=== PATIENT | female | born 1975 | race African-American/Black ===

== ENCOUNTER 2020-10-11 10:35 | Emergency (ER) | payer OTHER ==
[2020-10-11 10:49] VITALS: BP 105/81; PULSE 91; TEMP 97.8; BMI 38.2
[2020-10-11] MEDS ORDERED: IBUPROFEN 400 MG TABLET (FP) PO ONE ×2 (12:01→12:03)
== END 2020-10-11 12:34 | disposition home or self-care (01) ==
LOC: JERFT 10:35
DX: S97.81XA Crushing injury of right foot, initial encounter (principal); S90.31XA Contusion of right foot, initial encounter
CPT/HCPCS: 73630-TC-LT; 99283-25

== ENCOUNTER 2021-01-04 07:59 | Emergency (ER) | payer BC, OTHER ==
[2021-01-04 08:16] VITALS: TEMP 98.6; BMI 36.2
[2021-01-04] MEDS ORDERED: ACETAMINOPHEN 1000 MG/100 ML VIAL (NON FORMULARY) IVPB ONE (09:02)
[2021-01-04] MEDS ORDERED: LACTATED RINGERS SOLUTION 1000 ML INFUS.BAG IV ONE (09:02)
[2021-01-04] MEDS ORDERED: FAMOTIDINE 20 MG/50 ML IVPB 20 MG/50 ML MG IVPB ONE ×2 (09:02→09:30)
[2021-01-04] MEDS ORDERED: ALBUTEROL SO4 HFA INHALER IH ONE ×2 (09:10→09:30)
[2021-01-04] MEDS ORDERED: ACETAMINOPHEN INJECTION 100 ML IVPB ONE (09:29)
[2021-01-04 09:38] LABS: BASO % 0.3 % (0-2.0); EOS % 1.5 % (0-4.5); HEMATOCRIT 40.1 % (32.4-45.2); HEMOGLOBIN 12.8 GM/dL (10.7-15.3); LYMPH % 20.3 % (8-40); MCH 25.1 pg (25.7-33.7); MCHC 31.9 g/dl (32.0-36.0); MEAN CELL VOLUME 78.6 fl (80-96); MEAN PLT VOLUME 8.3 fl (7.5-11.1); MONO % 4.8 % (3.8-10.2); NEUT % 73.1 % (42.8-82.8); PLATELET COUNT 427 K/MM3 (134-434); RDW 15.7 % (11.6-15.6); WHITE BLOOD COUNT 8.2 K/mm3 (4.0-10.0)
[2021-01-04 10:00] LABS: CHLORIDE 104 mmol/L (98-107); SODIUM 137 mmol/L (136-145)
[2021-01-04 10:05] LABS: ALBUMIN 3.4 g/dl (3.4-5.0); ANION GAP 6 MMOL/L (8-16); BLOOD UREA NITROGEN 13.4 mg/dL (7-18); CO2 27 mmol/L (21-32); GLUCOSE,RANDOM 91 mg/dL (74-106); LIPASE 140 U/L (73-393)
[2021-01-04 10:07] LABS: CREATININE 0.8 mg/dL (0.55-1.3); SGOT/AST 20 U/L (15-37); SGPT/ALT 27 U/L (13-61)
[2021-01-04 10:09] LABS: BILIRUBIN,TOTAL 0.3 mg/dL (0.2-1); CALCIUM 8.6 mg/dL (8.5-10.1)
[2021-01-04 10:10] LABS: ALK PHOS 216 U/L (45-117)
[2021-01-04 12:50] VITALS: BP 163/90; PULSE 74
== END 2021-01-04 13:00 | disposition home or self-care (01) ==
LOC: JER 07:59
PROC: 3E0333Z Introduction of Anti-inflammatory into Peripheral Vein, Percutaneous Approach (ICD-10-PCS; principal; 2021-01-04)
PROC: 3E033GC Introduction of Other Therapeutic Substance into Peripheral Vein, Percutaneous Approach (ICD-10-PCS; 2021-01-04)
DX: R10.13 Epigastric pain (principal)
CPT/HCPCS: 36415; 71046-TC-FY; 76705-TC; 80053; 82550; 83690; 84484; 84703; 85025; 93005; 93010; 99285-25; J0131

== ENCOUNTER 2021-08-25 08:27 | Emergency (ER) | payer BC ==
[2021-08-25 08:45] VITALS: TEMP 97.8; BMI 38.2
[2021-08-25] MEDS ORDERED: ALBUTEROL SO4 2.5/IPRATROPIUM 0.5 INH SOL 3 ML VIAL.NEB. NEB ONE ×2 (10:00→10:05)
[2021-08-25] MEDS ORDERED: DEXAMETHASONE LIQUID 0.5 MG/5 ML PO ONE (10:01)
[2021-08-25] MEDS ORDERED: DEXAMETHASONE SOD PHOSPHATE 10 MG/1 ML VIAL ONE (10:05)
[2021-08-25 12:03] VITALS: BP 112/80; PULSE 92
== END 2021-08-25 12:07 | disposition home or self-care (01) ==
LOC: JER 08:27
PROC: 3E0F7GC Introduction of Other Therapeutic Substance into Respiratory Tract, Via Natural or Artificial Opening (ICD-10-PCS; principal; 2021-08-25)
DX: U07.1 COVID-19 (principal); R05.1 Acute cough
CPT/HCPCS: 71046-TC-FY; 99283-25

== ENCOUNTER 2022-04-27 14:13 | Emergency (ER) | payer BC ==
[2022-04-27 14:35] VITALS: BP 167/84; PULSE 91; RESP 18; TEMP 98.8; BMI 38.2
[2022-04-27] MEDS ORDERED: KETOROLAC TROMETHAMINE 30 MG/1 ML VIAL ONE (15:24)
[2022-04-27] MEDS ORDERED: SODIUM CHLORIDE 0.9% 500 ML INFUS.BAG IV ONE (17:33)
[2022-04-27] MEDS ORDERED: ACETAMINOPHEN 1000 MG/100 ML BAG IVPB ONE (17:33)
[2022-04-27] MEDS ORDERED: ACETAMINOPHEN INJECTION 100 ML IVPB ONE (19:10)
[2022-04-27 19:30] LABS: BASO % 0.6 % (0-2.0); EOS % 2.2 % (0-4.5); HEMATOCRIT 35.4 % (32.4-45.2); HEMOGLOBIN 11.4 GM/dL (10.7-15.3); LYMPH % 30.6 % (8-40); MCH 24.8 pg (25.7-33.7); MCHC 32.2 g/dl (32.0-36.0); MEAN PLT VOLUME 8.3 fl (7.5-11.1); MONO % 5.1 % (3.8-10.2); NEUT % 61.5 % (42.8-82.8); PLATELET COUNT 336 10^3/uL (134-434); RDW 17.4 % (11.6-15.6); WHITE BLOOD COUNT 6.9 K/mm3 (4.0-10.0)
[2022-04-27 19:48] LABS: HCG,QUALITATIVE URINE Negative
[2022-04-27 19:56] LABS: EPI CELLS 8 /uL (0-25.1); HYALINE CASTS 3 /uL (0-3.1); PH,URINE 5.5 (5.0-8.0); URINE APPEARANCE CLEAR; URINE BACTERIA 19 /uL (0-1359); URINE BILIRUBIN NEGATIVE (NEGATIVE); URINE COLOR YELLOW; URINE GLUCOSE (UA) 3+ (NEGATIVE); URINE KETONE TRACE (NEGATIVE); URINE LEUK ESTERASE NEGATIVE (NEGATIVE); URINE NITRITE NEGATIVE (NEGATIVE); URINE PROTEIN 2+ (NEGATIVE); URINE RBC 519 /uL (0-23.9); URINE UROBILINOGEN 0.2 mg/dL (0.2-1.0); URINE WBC 19 /uL (0-25.8)
[2022-04-27 19:58] LABS: CALCIUM 8.8 mg/dL (8.5-10.1)
[2022-04-27 19:59] LABS: ALBUMIN 3.1 g/dl (3.4-5.0); BLOOD UREA NITROGEN 14.2 mg/dL (7-18)
[2022-04-27 20:02] LABS: CREATININE 0.9 mg/dL (0.55-1.3)
[2022-04-27 20:03] LABS: BILIRUBIN,TOTAL 0.3 mg/dL (0.2-1)
[2022-04-27 20:04] LABS: TOT PROT 7.3 g/dl (6.4-8.2)
== END 2022-04-27 21:17 | disposition home or self-care (01) ==
LOC: JER 14:13
PROC: 3E033GC Introduction of Other Therapeutic Substance into Peripheral Vein, Percutaneous Approach (ICD-10-PCS; principal; 2022-04-27)
DX: N92.1 Excessive and frequent menstruation with irregular cycle (principal)
CPT/HCPCS: 36415; 76830-TC; 80053; 81003; 84703; 85025; 87086; 99284-25

== ENCOUNTER 2022-05-17 10:16 | Emergency (ER) | payer BC ==
[2022-05-17 11:01] VITALS: RESP 20; TEMP 98; BMI 38.2
[2022-05-17] MEDS ORDERED: SODIUM CHLORIDE 1,000 ML IV STA (12:06)
[2022-05-17] MEDS ORDERED: ONDANSETRON 4 MG/2 ML VIAL IVPUSH ONE (12:06)
[2022-05-17] MEDS ORDERED: ACETAMINOPHEN 1000 MG/100 ML BAG IVPB ONE (12:06)
[2022-05-17] MEDS ORDERED: ONDANSETRON 4 MG/2 ML VIAL ONE (12:20)
[2022-05-17] MEDS ORDERED: ACETAMINOPHEN INJECTION 100 ML IVPB ONE (12:20)
[2022-05-17 12:39] LABS: VENOUS BASE EXCESS 3.9 mmol/L (-2-2); VENOUS PCO2 52.3 mmHg (38-52); VENOUS PH 7.379 (7.310-7.410)
[2022-05-17 12:40] LABS: BASO % 1.6 % (0-2.0); EOS % 1.4 % (0-4.5); HEMATOCRIT 38.6 % (32.4-45.2); HEMOGLOBIN 12.1 GM/dL (10.7-15.3); LYMPH % 29.4 % (8-40); MCH 23.8 pg (25.7-33.7); MCHC 31.3 g/dl (32.0-36.0); MEAN CELL VOLUME 76.1 fl (80-96); MEAN PLT VOLUME 8.9 fl (7.5-11.1); MONO % 5.1 % (3.8-10.2); NEUT % 62.5 % (42.8-82.8); PLATELET COUNT 347 10^3/uL (134-434); RBC 5.07 M/mm3 (3.60-5.2); RDW 16.8 % (11.6-15.6)
[2022-05-17 12:45] LABS: INR 1.14 (0.83-1.09); PROTHROMBIN TIME (PATIENT) 13.1 SEC (9.7-13.0)
[2022-05-17 12:47] LABS: ACTIVATED PTT 26.9 SECONDS (25.2-36.5)
[2022-05-17 13:00] LABS: ALBUMIN 2.9 g/dl (3.4-5.0); BLOOD UREA NITROGEN 19.8 mg/dL (7-18); CALCIUM 9.5 mg/dL (8.5-10.1)
[2022-05-17 13:04] LABS: BILIRUBIN,TOTAL 0.5 mg/dL (0.2-1); TOT PROT 7.3 g/dl (6.4-8.2)
[2022-05-17] MEDS ORDERED: FAMOTIDINE 20 MG/50 ML IVPB 20 MG/50 ML MG IVPB ONE (13:22)
[2022-05-17] MEDS ORDERED: MAG HYDROX/AL HYDROX/SIMETH 30 ML UNIT-DOSE CUP PO ONE (13:22)
[2022-05-17] MEDS ORDERED: MAG HYDROX/AL HYDROX/SIMETH 30 ML UNIT-DOSE CUP ONE (13:26)
[2022-05-17 14:44] LABS: URINE APPEARANCE CLEAR; URINE BILIRUBIN NEGATIVE (NEGATIVE); URINE COLOR YELLOW; URINE GLUCOSE (UA) 3+ (NEGATIVE); URINE KETONE NEGATIVE (NEGATIVE); URINE LEUK ESTERASE NEGATIVE (NEGATIVE); URINE NITRITE NEGATIVE (NEGATIVE); URINE PROTEIN 1+ (NEGATIVE); URINE UROBILINOGEN 0.2 mg/dL (0.2-1.0)
[2022-05-17 15:36] LABS: EPI CELLS 15 /uL (0-25.1); HYALINE CASTS 1 /uL (0-3.1); URINE BACTERIA 222 /uL (0-1359); URINE RBC 12 /uL (0-23.9); URINE WBC 63 /uL (0-25.8)
[2022-05-17 16:51] VITALS: BP 166/78; PULSE 70
== END 2022-05-17 17:03 | disposition home or self-care (01) ==
LOC: JER 10:16
PROC: 3E0333Z Introduction of Anti-inflammatory into Peripheral Vein, Percutaneous Approach (ICD-10-PCS; principal; 2022-05-17)
PROC: 3E033GC Introduction of Other Therapeutic Substance into Peripheral Vein, Percutaneous Approach (ICD-10-PCS; 2022-05-17)
PROC: 3E0337Z Introduction of Electrolytic and Water Balance Substance into Peripheral Vein, Percutaneous Approach (ICD-10-PCS; 2022-05-17)
DX: R10.9 Unspecified abdominal pain (principal)
CPT/HCPCS: 36415; 76705-TC; 80053; 80061; 81003; 82010; 82803; 83036; 83690; 84703; 85025; 85610; 85730; 87086; 99284-25

== ENCOUNTER 2022-05-18 08:34 | Inpatient (IN) | payer BC ==
[2022-05-18] MEDS ORDERED: ACETAMINOPHEN 1000 MG/100 ML BAG IVPB ONE (08:55)
[2022-05-18] MEDS ORDERED: ONDANSETRON 4 MG/2 ML VIAL IVPUSH ONE (08:55)
[2022-05-18] MEDS ORDERED: SODIUM CHLORIDE 0.9% 500 ML INFUS.BAG IV ONE (08:55)
[2022-05-18] MEDS ORDERED: morphine CARPU-JECT 4 MG/1 ML DISP.SYRIN IVPUSH ONE (09:08)
[2022-05-18] MEDS ORDERED: CEFTRIAXONE 2,000 MG in DEXTROSE 5%-WATER - 50 ML IVPB ONE (09:13)
[2022-05-18] MEDS ORDERED: ONDANSETRON 4 MG/2 ML VIAL ONE (09:46)
[2022-05-18] MEDS ORDERED: morphine SULFATE 4 MG/ML VIAL ONE (09:47)
[2022-05-18] MEDS ORDERED: CEFTRIAXONE 2 GM/100 ML BAG IVPB ONE (09:51)
[2022-05-18 10:15] LABS: BASO % 1.6 % (0-2.0); EOS % 1.8 % (0-4.5); HEMATOCRIT 36.9 % (32.4-45.2); HEMOGLOBIN 11.9 GM/dL (10.7-15.3); LYMPH % 27.4 % (8-40); MCH 24.5 pg (25.7-33.7); MCHC 32.3 g/dl (32.0-36.0); MEAN CELL VOLUME 75.9 fl (80-96); MEAN PLT VOLUME 8.8 fl (7.5-11.1); MONO % 5.6 % (3.8-10.2); NEUT % 63.6 % (42.8-82.8); PLATELET COUNT 320 10^3/uL (134-434); RBC 4.86 M/mm3 (3.60-5.2); RDW 16.6 % (11.6-15.6); WHITE BLOOD COUNT 8.6 K/mm3 (4.0-10.0)
[2022-05-18 10:23] LABS: BLOOD UREA NITROGEN 14.8 mg/dL (7-18); CALCIUM 9.5 mg/dL (8.5-10.1)
[2022-05-18 10:24] LABS: ALBUMIN 3.3 g/dl (3.4-5.0); MAGNESIUM 2.2 mg/dL (1.8-2.4)
[2022-05-18 10:26] LABS: CREATININE 0.9 mg/dL (0.55-1.3)
[2022-05-18 10:28] LABS: BILIRUBIN,TOTAL 0.5 mg/dL (0.2-1); TOT PROT 7.8 g/dl (6.4-8.2)
[2022-05-18 10:35] LABS: ACTIVATED PTT 21.1 SECONDS (25.2-36.5); INR 1.11 (0.83-1.09); PROTHROMBIN TIME (PATIENT) 12.8 SEC (9.7-13.0)
[2022-05-18] MEDS ORDERED: ONDANSETRON 4 MG/2 ML VIAL IVPUSH PRN (14:15)
[2022-05-18] MEDS ORDERED: ACETAMINOPHEN 1000 MG/100 ML BAG IVPB PRN (14:16)
[2022-05-18] MEDS ORDERED: ALBUTEROL SO4 HFA INHALER IH PRN (14:46)
[2022-05-18 14:57] VITALS: BMI 36.7
[2022-05-18] MEDS: NICOTINE 14 MG/24 HOURS TOPICAL PATCH TD SCH (15:48)
[2022-05-18] MEDS: SODIUM CHLORIDE 1,000 ML IV SCH (15:49)
[2022-05-18] MEDS: INSULIN SLIDING SCALE (NOVOLOG) 1 VIAL SQ SCH ×2 (16:01→22:04)
[2022-05-18] MEDS ORDERED: INSULIN (NOVOLOG) ASPART 100 UNITS/ML 10ML VIAL ONE (16:31)
[2022-05-19] MEDS: SODIUM CHLORIDE 1,000 ML IV SCH ×3 (03:07→23:51)
[2022-05-19] MEDS: INSULIN SLIDING SCALE (NOVOLOG) 1 VIAL SQ SCH ×4 (06:08→21:56)
[2022-05-19] MEDS ORDERED: BUPIVACAINE HCL/PF 0.25% (2.5MG/ML) 10 ML VIAL ONE (07:52)
[2022-05-19 08:17] LABS: HEMATOCRIT 33.2 % (32.4-45.2); HEMOGLOBIN 10.6 GM/dL (10.7-15.3); MCH 24.2 pg (25.7-33.7); MCHC 31.9 g/dl (32.0-36.0); MEAN PLT VOLUME 8.4 fl (7.5-11.1); PLATELET COUNT 274 10^3/uL (134-434); RBC 4.37 M/mm3 (3.60-5.2); RDW 16.8 % (11.6-15.6); WHITE BLOOD COUNT 5.8 K/mm3 (4.0-10.0)
[2022-05-19] MEDS ORDERED: SEVOFLURANE 250 ML BTL ONE (08:18)
[2022-05-19] MEDS ORDERED: MIDAZOLAM HCL 2 MG/2 ML SINGLE DOSE VIAL ONE (08:23)
[2022-05-19] MEDS ORDERED: PROPOFOL 20 ML ONE ×3 (08:23→11:26)
[2022-05-19] MEDS ORDERED: ROCURONIUM BROMIDE 50 MG/5 ML SYRINGE ONE ×2 (08:23→10:07)
[2022-05-19] MEDS ORDERED: LIDOCAINE HCL 2% 100 MG/5 ML DISP.SYRIN ONE (08:27)
[2022-05-19 08:44] LABS: BLOOD UREA NITROGEN 10.1 mg/dL (7-18); CALCIUM 8.5 mg/dL (8.5-10.1)
[2022-05-19 08:48] LABS: PHOSPHOROUS 3.4 mg/dL (2.5-4.9)
[2022-05-19 08:49] LABS: CREATININE 0.7 mg/dL (0.55-1.3)
[2022-05-19] MEDS ORDERED: PROMETHAZINE HCL 25 MG/1 ML VIAL IVPUSH PRN (08:51)
[2022-05-19] MEDS ORDERED: oxyCODONE HCL 5 MG TABLET PO PRN ×4 (08:51→12:04)
[2022-05-19] MEDS ORDERED: LACTATED RINGERS SOLUTION 1,000 ML IV SCH (09:00)
[2022-05-19] MEDS ORDERED: ceFAZolin SODIUM 1 GM VIAL IVPB ONE (09:20)
[2022-05-19] MEDS ORDERED: ONDANSETRON 4 MG/2 ML VIAL ONE (09:30)
[2022-05-19] MEDS ORDERED: DEXAMETHASONE SOD PHOSPHATE 4 MG/1 ML VIAL ONE (09:30)
[2022-05-19] MEDS ORDERED: ALBUTEROL SO4 HFA INHALER IH ONE (09:39)
[2022-05-19] MEDS ORDERED: LISINOPRIL 5 MG TABLET PO SCH (10:00)
[2022-05-19] MEDS ORDERED: CEFTRIAXONE 1 GM in DEXTROSE 5%-WATER - 50 ML IVPB SCH (10:00)
[2022-05-19] MEDS ORDERED: LABETALOL HCL 5 MG/1 ML (100MG/20 ML VIAL) ONE (10:26)
[2022-05-19] MEDS ORDERED: NEOSTIGMINE METHYLSULFATE 0.5 MG/ML - 10 ML MDV ONE (11:02)
[2022-05-19] MEDS ORDERED: GLYCOPYRROLATE 0.2 MG/1 ML VIAL ONE (11:02)
[2022-05-19] MEDS ORDERED: KETOROLAC TROMETHAMINE 30 MG/1 ML VIAL ONE (11:03)
[2022-05-19] MEDS ORDERED: BUPIVACAINE HCL/PF 0.25% (2.5MG/ML) 10 ML VIAL IJ ONE (11:04)
[2022-05-19] MEDS ORDERED: hydrALAZINE HCL 20 MG/ML VIAL IVPUSH ONE (11:57)
[2022-05-19] MEDS ORDERED: ALBUTEROL SO4 HFA INHALER IH PRN (12:04)
[2022-05-19] MEDS ORDERED: ACETAMINOPHEN 1000 MG/100 ML BAG IVPB ONE (13:00)
[2022-05-19] MEDS: ONDANSETRON 4 MG/2 ML VIAL IVPUSH PRN ×2 (13:58→21:57)
[2022-05-19] MEDS: NICOTINE 14 MG/24 HOURS TOPICAL PATCH TD SCH (14:11)
[2022-05-19] MEDS ORDERED: morphine CARPU-JECT 2 MG/1 ML DISP.SYRIN IVPUSH PRN (17:38)
[2022-05-19] MEDS: morphine SULFATE 4 MG/ML VIAL IVPUSH PRN ×2 (17:46→22:46)
[2022-05-19] MEDS: ACETAMINOPHEN 500 MG TABLET (FP) PO SCH (20:58)
[2022-05-19] MEDS ORDERED: INSULIN (NOVOLOG) ASPART 100 UNITS/ML 10ML VIAL ONE (21:56)
[2022-05-20] MEDS: ACETAMINOPHEN 500 MG TABLET (FP) PO SCH ×3 (03:05→14:31)
[2022-05-20] MEDS: INSULIN SLIDING SCALE (NOVOLOG) 1 VIAL SQ SCH ×4 (06:31→22:33)
[2022-05-20] MEDS: SODIUM CHLORIDE 1,000 ML IV SCH (08:53)
[2022-05-20 09:28] LABS: HEMATOCRIT 31.4 % (32.4-45.2); HEMOGLOBIN 9.8 GM/dL (10.7-15.3); MCH 23.7 pg (25.7-33.7); MCHC 31.2 g/dl (32.0-36.0); MEAN CELL VOLUME 76.2 fl (80-96); PLATELET COUNT 293 10^3/uL (134-434); RBC 4.12 M/mm3 (3.60-5.2); RDW 16.3 % (11.6-15.6); WHITE BLOOD COUNT 9.9 K/mm3 (4.0-10.0)
[2022-05-20 09:51] LABS: CALCIUM 8.5 mg/dL (8.5-10.1)
[2022-05-20 09:52] LABS: BLOOD UREA NITROGEN 8.6 mg/dL (7-18); MAGNESIUM 1.9 mg/dL (1.8-2.4)
[2022-05-20 09:53] LABS: PHOSPHOROUS 2.8 mg/dL (2.5-4.9)
[2022-05-20 09:55] LABS: CREATININE 0.6 mg/dL (0.55-1.3)
[2022-05-20 09:56] LABS: BILIRUBIN,TOTAL 0.4 mg/dL (0.2-1); TOT PROT 6.2 g/dl (6.4-8.2)
[2022-05-20 09:57] LABS: ALBUMIN 2.6 g/dl (3.4-5.0)
[2022-05-20] MEDS: LISINOPRIL 5 MG TABLET PO SCH (10:33)
[2022-05-20] MEDS: morphine SULFATE 4 MG/ML VIAL IVPUSH PRN (10:33)
[2022-05-20] MEDS: NICOTINE 14 MG/24 HOURS TOPICAL PATCH TD SCH (10:33)
[2022-05-20] MEDS: ACETAMINOPHEN 500 MG TABLET (FP) PO PRN (22:27)
[2022-05-21] MEDS: morphine SULFATE 4 MG/ML VIAL IVPUSH PRN (00:09)
[2022-05-21] MEDS: SODIUM CHLORIDE 1,000 ML IV SCH (05:45)
[2022-05-21] MEDS: INSULIN SLIDING SCALE (NOVOLOG) 1 VIAL SQ SCH ×3 (06:19→16:49)
[2022-05-21] MEDS: NICOTINE 14 MG/24 HOURS TOPICAL PATCH TD SCH (09:51)
[2022-05-21] MEDS: ACETAMINOPHEN 500 MG TABLET (FP) PO PRN (09:51)
[2022-05-21] MEDS: LISINOPRIL 5 MG TABLET PO SCH (09:51)
[2022-05-21 10:05] VITALS: RESP 18
[2022-05-21 15:53] VITALS: BP 145/8; PULSE 90; TEMP 98.6
== END 2022-05-21 14:30 | disposition home or self-care (01) | DRG 419 ==
LOC: JER 08:34 → JERBED 08:55 → J7W 14:29
PROVIDERS: ADMIT Internal Medicine; ATTEND Internal Medicine
PROC: 0FT44ZZ Resection of Gallbladder, Percutaneous Endoscopic Approach (ICD-10-PCS; principal; 2022-05-19 07:30)
DX: K80.10 Calculus of gallbladder with chronic cholecystitis without obstruction (principal); I10 Essential (primary) hypertension; E11.9 Type 2 diabetes mellitus without complications; F17.210 Nicotine dependence, cigarettes, uncomplicated; E66.9 Obesity, unspecified; Z68.36 Body mass index [BMI] 36.0-36.9, adult; E11.65 Type 2 diabetes mellitus with hyperglycemia; Z79.4 Long term (current) use of insulin; R10.11 Right upper quadrant pain
CPT/HCPCS: 36415; 71046-TC-FY; 76705-TC; 80048; 80053; 80061; 82962; 83690; 83735; 84100; 84484; 84703; 85025; 85027; 85610; 85730; 86850; 86900; 86901; 88304-TC; 93005; 93010; 94760; 99285-25; C9803-CS; U0003; U0005

== ENCOUNTER 2022-06-30 12:30 | Observation (INO) | payer BC ==
[2022-06-30] MEDS ORDERED: SODIUM CHLORIDE 0.9% 500 ML INFUS.BAG IV ONE ×2 (13:31→18:41)
[2022-06-30] MEDS ORDERED: ONDANSETRON 4 MG/2 ML VIAL IVPUSH ONE (13:31)
[2022-06-30] MEDS ORDERED: morphine CARPU-JECT 4 MG/1 ML DISP.SYRIN IVPUSH ONE (13:31)
[2022-06-30] MEDS ORDERED: ONDANSETRON 4 MG/2 ML VIAL ONE (13:43)
[2022-06-30] MEDS ORDERED: morphine SULFATE 4 MG/ML VIAL ONE (13:43)
[2022-06-30 15:14] LABS: BASO % 0.3 % (0-2.0); EOS % 0.9 % (0-4.5); HEMATOCRIT 39.8 % (32.4-45.2); HEMOGLOBIN 12.6 GM/dL (10.7-15.3); LYMPH % 40.7 % (8-40); MCH 23.5 pg (25.7-33.7); MCHC 31.7 g/dl (32.0-36.0); MEAN CELL VOLUME 74.1 fl (80-96); MEAN PLT VOLUME 8.1 fl (7.5-11.1); MONO % 5.3 % (3.8-10.2); NEUT % 52.8 % (42.8-82.8); PLATELET COUNT 552 10^3/uL (134-434); RBC 5.36 M/mm3 (3.60-5.2); RDW 16.8 % (11.6-15.6); WHITE BLOOD COUNT 7.4 K/mm3 (4.0-10.0)
[2022-06-30 15:19] LABS: EPI CELLS >36 /uL (0-25.1); HYALINE CASTS 8 /uL (0-3.1); URINE APPEARANCE TURBID; URINE BACTERIA 19 /uL (0-1359); URINE BILIRUBIN 2+ (NEGATIVE); URINE COLOR DK YELLOW; URINE GLUCOSE (UA) TRACE (NEGATIVE); URINE KETONE TRACE (NEGATIVE); URINE LEUK ESTERASE TRACE (NEGATIVE); URINE NITRITE NEGATIVE (NEGATIVE); URINE PROTEIN 2+ (NEGATIVE); URINE RBC 2100 /uL (0-23.9); URINE UROBILINOGEN 0.2 mg/dL (0.2-1.0); URINE WBC 81 /uL (0-25.8)
[2022-06-30 15:36] LABS: ALBUMIN 3.5 g/dl (3.4-5.0); CALCIUM 9.6 mg/dL (8.5-10.1)
[2022-06-30 15:37] LABS: BLOOD UREA NITROGEN 32.6 mg/dL (7-18)
[2022-06-30 15:40] LABS: CREATININE 2.1 mg/dL (0.55-1.3)
[2022-06-30 15:41] LABS: BILIRUBIN,TOTAL 0.5 mg/dL (0.2-1); TOT PROT 8.4 g/dl (6.4-8.2)
[2022-06-30] MEDS ORDERED: FAMOTIDINE 20 MG/50 ML IVPB 20 MG/50 ML MG IVPB ONE ×2 (19:01→19:06)
[2022-06-30] MEDS ORDERED: MAG HYDROX/AL HYDROX/SIMETH -MYLANTA- ORAL SUSPENSION PO ONE (19:01)
[2022-06-30] MEDS ORDERED: SUCRALFATE 1 GM TABLET (FP) PO ONE (19:01)
[2022-06-30] MEDS ORDERED: SUCRALFATE 1 GM TABLET (FP) ONE (19:06)
[2022-06-30] MEDS ORDERED: MAG HYDROX/AL HYDROX/SIMETH 30 ML UNIT-DOSE CUP ONE (19:06)
[2022-06-30] MEDS ORDERED: TRIMETHOBENZAMIDE HCL 200MG/2ML INJ IM PRN (21:56)
[2022-06-30] MEDS ORDERED: HEPARIN NA (PORCINE) 5,000 UNITS/ML 1ML VIAL ONE (23:32)
[2022-06-30] MEDS: INSULIN SLIDING SCALE (NOVOLOG) 1 VIAL SQ SCH (23:56)
[2022-06-30] MEDS: HEPARIN NA (PORCINE) 5,000 UNITS/ML 1ML VIAL SQ SCH (23:57)
[2022-07-01] MEDS ORDERED: PIPERACILLIN/TAZOB 3.375 GM 3.375 GM in DEXTROSE 5%-WATER - 50 ML IVPB SCH ×2 (02:00→02:15)
[2022-07-01 05:42] VITALS: BMI 37.9
[2022-07-01] MEDS: HEPARIN NA (PORCINE) 5,000 UNITS/ML 1ML VIAL SQ SCH ×2 (06:39→14:01)
[2022-07-01] MEDS: INSULIN SLIDING SCALE (NOVOLOG) 1 VIAL SQ SCH ×3 (06:40→17:21)
[2022-07-01] MEDS ORDERED: VANCOMYCIN HCL 1,500 MG in DEXTROSE 5%-WATER - 250 ML IVPB SCH (07:00)
[2022-07-01 08:08] LABS: EOS % 2.3 % (0-4.5); HEMATOCRIT 32.7 % (32.4-45.2); HEMOGLOBIN 10.5 GM/dL (10.7-15.3); LYMPH % 39.2 % (8-40); MCHC 32.3 g/dl (32.0-36.0); MEAN CELL VOLUME 74.4 fl (80-96); MEAN PLT VOLUME 8.3 fl (7.5-11.1); MONO % 6.4 % (3.8-10.2); NEUT % 51.1 % (42.8-82.8); PLATELET COUNT 362 10^3/uL (134-434); RBC 4.39 M/mm3 (3.60-5.2); RDW 16.2 % (11.6-15.6); WHITE BLOOD COUNT 5.6 K/mm3 (4.0-10.0)
[2022-07-01 08:25] LABS: BLOOD UREA NITROGEN 25.2 mg/dL (7-18)
[2022-07-01 08:26] LABS: MAGNESIUM 2.5 mg/dL (1.8-2.4)
[2022-07-01 08:28] LABS: PHOSPHOROUS 3.8 mg/dL (2.5-4.9)
[2022-07-01 08:30] LABS: BILIRUBIN,TOTAL 0.4 mg/dL (0.2-1); TOT PROT 6.5 g/dl (6.4-8.2)
[2022-07-01 08:35] LABS: ALBUMIN 2.6 g/dl (3.4-5.0); CALCIUM 7.9 mg/dL (8.5-10.1)
[2022-07-01] MEDS ORDERED: SODIUM CHLORIDE 0.45% 1,000 ML IV SCH (09:00)
[2022-07-01] MEDS ORDERED: LISINOPRIL 5 MG TABLET PO SCH (10:00)
[2022-07-01] MEDS ORDERED: SODIUM ZIRCONIUM CYCLOSILICATE (LOKELMA) 5 GM PACKET PO SCH (12:45)
[2022-07-01] MEDS ORDERED: NICOTINE 21 MG/24 HOURS TOPICAL PATCH TD SCH (14:15)
[2022-07-01 16:01] LABS: CALCIUM 8.4 mg/dL (8.5-10.1)
[2022-07-01 16:03] LABS: BLOOD UREA NITROGEN 21.5 mg/dL (7-18)
[2022-07-01 16:05] LABS: CREATININE 0.9 mg/dL (0.55-1.3)
[2022-07-01 17:54] VITALS: BP 141/60; PULSE 80; RESP 20; TEMP 98.9
== END 2022-07-01 18:51 | disposition home or self-care (01) ==
LOC: JER 12:30 → JERBED 17:59 → INTOOBSV 17:59 → J4S 23:51
PROVIDERS: ADMIT Internal Medicine; ATTEND Internal Medicine
PROC: 3E033GC Introduction of Other Therapeutic Substance into Peripheral Vein, Percutaneous Approach (ICD-10-PCS; principal; 2022-06-30)
PROC: 3E033NZ Introduction of Analgesics, Hypnotics, Sedatives into Peripheral Vein, Percutaneous Approach (ICD-10-PCS; 2022-06-30)
PROC: 3E033GC Introduction of Other Therapeutic Substance into Peripheral Vein, Percutaneous Approach (ICD-10-PCS; 2022-06-30)
PROC: 3E0337Z Introduction of Electrolytic and Water Balance Substance into Peripheral Vein, Percutaneous Approach (ICD-10-PCS; 2022-06-30)
DX: N17.9 Acute kidney failure, unspecified (principal); R77.8 Other specified abnormalities of plasma proteins; E78.00 Pure hypercholesterolemia, unspecified; J45.909 Unspecified asthma, uncomplicated; E66.8 Other obesity; I10 Essential (primary) hypertension; E87.5 Hyperkalemia; N92.0 Excessive and frequent menstruation with regular cycle; F12.10 Cannabis abuse, uncomplicated; Z29.8 Encounter for other specified prophylactic measures; R19.8 Other specified symptoms and signs involving the digestive system and abdomen; Z68.37 Body mass index [BMI] 37.0-37.9, adult; E11.9 Type 2 diabetes mellitus without complications; Z79.4 Long term (current) use of insulin; F17.210 Nicotine dependence, cigarettes, uncomplicated; Z79.84 Long term (current) use of oral hypoglycemic drugs
CPT/HCPCS: 36415; 71046-TC-FY; 76705-TC; 76775-TC; 80048; 80053; 80061; 81003; 82550; 82553; 82570; 82962; 83036; 83690; 83735; 84100; 84156; 84443; 84484; 84703; 85025; 87086; 93005; 93010; 99285-25; C9803-CS; G0378; J1644; U0003; U0005

== ENCOUNTER 2022-09-25 08:05 | Emergency (ER) | payer BC ==
[2022-09-25 08:35] VITALS: BP 178/89; PULSE 82; RESP 18; TEMP 98.7; BMI 38.2
[2022-09-25] MEDS ORDERED: ACETAMINOPHEN 500 MG TABLET (FP) PO ONE (10:20)
[2022-09-25] MEDS ORDERED: ACETAMINOPHEN 325 MG TABLET (FP) ONE (10:44)
== END 2022-09-25 11:44 | disposition home or self-care (01) ==
LOC: JERFT 08:05 → JER 08:05 → JERFT 11:44
DX: M79.671 Pain in right foot (principal)
CPT/HCPCS: 73610-TC-RT-FY; 73630-TC-RT-FY; 99283-25

== ENCOUNTER 2023-05-09 20:55 | Observation (INO) | payer BC ==
[2023-05-09 21:04] VITALS: BMI 38.2
[2023-05-09] MEDS ORDERED: LISINOPRIL 5 MG TABLET PO ONE (22:35)
[2023-05-09 22:45] LABS: BASO % 1.6 % (0-2.0); EOS % 0.8 % (0-4.5); HEMATOCRIT 33.9 % (32.4-45.2); HEMOGLOBIN 11.1 GM/dL (10.7-15.3); LYMPH % 29.3 % (8-40); MCH 24.9 pg (25.7-33.7); MCHC 32.7 g/dl (32.0-36.0); MEAN CELL VOLUME 76.1 fl (80-96); MEAN PLT VOLUME 8.6 fl (7.5-11.1); MONO % 4.9 % (3.8-10.2); NEUT % 63.4 % (42.8-82.8); PLATELET COUNT 294 10^3/uL (134-434); RBC 4.46 M/mm3 (3.60-5.2); RDW 18.6 % (11.6-15.6); WHITE BLOOD COUNT 7.8 K/mm3 (4.0-10.0)
[2023-05-09 22:46] LABS: VENOUS BASE EXCESS 3.4 mmol/L (-2-2); VENOUS PCO2 48.1 mmHg (38-52); VENOUS PH 7.398 (7.310-7.410)
[2023-05-09] MEDS ORDERED: LISINOPRIL 5 MG TABLET ONE (22:48)
[2023-05-09 22:53] LABS: INR 1.12 (0.83-1.09)
[2023-05-09 22:56] LABS: ACTIVATED PTT 26.3 SECONDS (25.2-36.5)
[2023-05-09 22:57] LABS: POTASSIUM 4.2 mmol/L (3.5-5.1)
[2023-05-09 22:59] LABS: ALBUMIN 3.1 g/dl (3.4-5.0); CALCIUM 8.6 mg/dL (8.5-10.1)
[2023-05-09 23:00] LABS: BLOOD UREA NITROGEN 14.3 mg/dL (7-18)
[2023-05-09 23:04] LABS: BILIRUBIN,TOTAL 0.5 mg/dL (0.2-1); TOT PROT 7.2 g/dl (6.4-8.2)
[2023-05-09 23:06] LABS: EPI CELLS 9 /uL (0-25.1); HYALINE CASTS 1 /uL (0-3.1); PH,URINE 5.5 (5.0-8.0); URINE APPEARANCE CLEAR; URINE BACTERIA 18 /uL (0-1359); URINE BILIRUBIN NEGATIVE (NEGATIVE); URINE COLOR YELLOW; URINE GLUCOSE (UA) 3+ (NEGATIVE); URINE KETONE NEGATIVE (NEGATIVE); URINE LEUK ESTERASE NEGATIVE (NEGATIVE); URINE NITRITE NEGATIVE (NEGATIVE); URINE PROTEIN 3+ (NEGATIVE); URINE RBC 1353 /uL (0-23.9); URINE UROBILINOGEN 0.2 mg/dL (0.2-1.0); URINE WBC 12 /uL (0-25.8)
[2023-05-09 23:08] LABS: N-TERMINAL BNP 460.3 pg/ml (5-125)
[2023-05-09] MEDS ORDERED: ACETAMINOPHEN 1000 MG/100 ML BAG IVPB ONE (23:40)
[2023-05-09] MEDS ORDERED: ACETAMINOPHEN INJECTION 100 ML IVPB ONE (23:45)
[2023-05-10] MEDS ORDERED: INSULIN REGULAR HUMAN 100 UNITS/ML *VIAL SQ ONE (01:07)
[2023-05-10] MEDS ORDERED: hydrALAZINE HCL 20 MG/ML VIAL IVPUSH STA (04:57)
[2023-05-10] MEDS ORDERED: hydrALAZINE HCL 20 MG/ML VIAL ONE (05:06)
[2023-05-10] MEDS: HYDROCHLOROTHIAZIDE 12.5 MG CAPSULE (FP) PO SCH ×2 (05:37→10:50)
[2023-05-10] MEDS ORDERED: ACETAMINOPHEN 325 MG TABLET (FP) PO PRN ×2 (05:41→17:52)
[2023-05-10] MEDS ORDERED: ACETAMINOPHEN 325 MG TABLET (FP) PO ONE (06:02)
[2023-05-10] MEDS ORDERED: ACETAMINOPHEN 325 MG TABLET (FP) ONE ×3 (06:07→16:27)
[2023-05-10 07:24] LABS: HEMATOCRIT 33.2 % (32.4-45.2); HEMOGLOBIN 10.6 GM/dL (10.7-15.3); MCH 24.7 pg (25.7-33.7); MCHC 31.8 g/dl (32.0-36.0); MEAN CELL VOLUME 77.6 fl (80-96); MEAN PLT VOLUME 8.7 fl (7.5-11.1); PLATELET COUNT 278 10^3/uL (134-434); RBC 4.28 M/mm3 (3.60-5.2); RDW 18.6 % (11.6-15.6); WHITE BLOOD COUNT 7.3 K/mm3 (4.0-10.0)
[2023-05-10 07:47] LABS: CALCIUM 8.2 mg/dL (8.5-10.1)
[2023-05-10 07:48] LABS: BLOOD UREA NITROGEN 12.3 mg/dL (7-18); MAGNESIUM 2.1 mg/dL (1.8-2.4)
[2023-05-10 07:51] LABS: CREATININE 0.7 mg/dL (0.55-1.3); PHOSPHOROUS 3.2 mg/dL (2.5-4.9)
[2023-05-10] MEDS: INSULIN SLIDING SCALE (NOVOLOG) 1 VIAL SQ SCH ×4 (08:10→22:01)
[2023-05-10] MEDS ORDERED: NICOTINE 7 MG/24 HOURS TOPICAL PATCH TD ONE (10:44)
[2023-05-10] MEDS ORDERED: ENOXAPARIN NA (PORCINE) 40 MG/0.4 ML DISP.SYRIN SQ ONE (10:44)
[2023-05-10] MEDS: NICOTINE 7 MG/24 HOURS TOPICAL PATCH TD SCH (10:50)
[2023-05-10] MEDS: ENOXAPARIN NA (PORCINE) 40 MG/0.4 ML DISP.SYRIN SQ SCH (10:50)
[2023-05-10] MEDS ORDERED: amLODIPine BESYLATE 5 MG TABLET (FP) PO SCH (18:30)
[2023-05-10] MEDS ORDERED: LISINOPRIL 20 MG TABLET PO SCH ×3 (19:00)
[2023-05-10] MEDS: LISINOPRIL 20 MG TABLET PO SCH (21:55)
[2023-05-10] MEDS: amLODIPine BESYLATE 5 MG TABLET (FP) PO SCH (21:56)
[2023-05-10] MEDS: INSULIN (LEVEMIR) 100 UNITS/ML UNITS SQ SCH (21:56)
[2023-05-10] MEDS ORDERED: ATORVASTATIN CA 40 MG TABLET (FP) PO SCH (22:00)
[2023-05-10] MEDS ORDERED: INSULIN (LEVEMIR) 100 UNITS/ML UNITS SQ SCH (22:00)
[2023-05-11] MEDS: INSULIN SLIDING SCALE (NOVOLOG) 1 VIAL SQ SCH ×2 (06:36→11:53)
[2023-05-11] MEDS: INSULIN (LEVEMIR) 100 UNITS/ML UNITS SQ SCH (06:36)
[2023-05-11 08:03] LABS: BASO % 0.8 % (0-2.0); EOS % 1.1 % (0-4.5); HEMATOCRIT 35.1 % (32.4-45.2); HEMOGLOBIN 11.8 GM/dL (10.7-15.3); LYMPH % 35.2 % (8-40); MCH 25.6 pg (25.7-33.7); MCHC 33.7 g/dl (32.0-36.0); MEAN CELL VOLUME 75.9 fl (80-96); MEAN PLT VOLUME 8.7 fl (7.5-11.1); MONO % 6.3 % (3.8-10.2); NEUT % 56.6 % (42.8-82.8); PLATELET COUNT 277 10^3/uL (134-434); RBC 4.63 M/mm3 (3.60-5.2); WHITE BLOOD COUNT 5.4 K/mm3 (4.0-10.0)
[2023-05-11 08:37] LABS: POTASSIUM 4.2 mmol/L (3.5-5.1)
[2023-05-11 08:43] LABS: CALCIUM 8.4 mg/dL (8.5-10.1)
[2023-05-11 08:44] LABS: BLOOD UREA NITROGEN 16.9 mg/dL (7-18); MAGNESIUM 1.9 mg/dL (1.8-2.4)
[2023-05-11 08:47] LABS: CREATININE 0.7 mg/dL (0.55-1.3); PHOSPHOROUS 3.3 mg/dL (2.5-4.9)
[2023-05-11] MEDS ORDERED: ALBUTEROL SO4 2.5/IPRATROPIUM 0.5 INH SOL 3 ML VIAL.NEB. NEB PRN (09:05)
[2023-05-11 09:30] VITALS: BP 158/78; PULSE 72; RESP 18; TEMP 98.3
[2023-05-11] MEDS: ENOXAPARIN NA (PORCINE) 40 MG/0.4 ML DISP.SYRIN SQ SCH (09:32)
[2023-05-11] MEDS: NICOTINE 7 MG/24 HOURS TOPICAL PATCH TD SCH (09:33)
[2023-05-11] MEDS: amLODIPine BESYLATE 5 MG TABLET (FP) PO SCH (09:33)
[2023-05-11] MEDS: LISINOPRIL 20 MG TABLET PO SCH (09:33)
[2023-05-11] MEDS ORDERED: ALBUTEROL SO4 2.5/IPRATROPIUM 0.5 INH SOL 3 ML VIAL.NEB. NEB SCH (12:00)
== END 2023-05-11 14:24 | disposition home or self-care (01) ==
LOC: JER 20:55 → OBSVTOIN 05-10 01:03 → JERBED 05-10 01:03 → UNDOADMOB 05-10 01:03 → INTOOBSV 05-10 01:03 → J4W 05-10 19:03 → JERBED 05-10 19:03 → J4W 05-11 09:06 → JERBED 05-11 09:06
PROVIDERS: ADMIT Internal Medicine; ATTEND Internal Medicine
PROC: 3E033NZ Introduction of Analgesics, Hypnotics, Sedatives into Peripheral Vein, Percutaneous Approach (ICD-10-PCS; principal; 2023-05-11)
PROC: 3E0F7GC Introduction of Other Therapeutic Substance into Respiratory Tract, Via Natural or Artificial Opening (ICD-10-PCS; 2023-05-11)
PROC: 3E023GC Introduction of Other Therapeutic Substance into Muscle, Percutaneous Approach (ICD-10-PCS; 2023-05-11)
PROC: 3E013VG Introduction of Insulin into Subcutaneous Tissue, Percutaneous Approach (ICD-10-PCS; 2023-05-11)
DX: I16.0 Hypertensive urgency (principal); E11.9 Type 2 diabetes mellitus without complications; J45.909 Unspecified asthma, uncomplicated; R06.00 Dyspnea, unspecified; E66.01 Morbid (severe) obesity due to excess calories; K29.70 Gastritis, unspecified, without bleeding; N92.1 Excessive and frequent menstruation with irregular cycle; F17.210 Nicotine dependence, cigarettes, uncomplicated; Z91.013 Allergy to seafood
CPT/HCPCS: 0241U-QW; 36415; 70450-TC; 71046-TC-FY; 80048; 80053; 80061; 81003; 82010; 82803; 82962; 83036; 83735; 83880; 84100; 84443; 84484; 84703; 85025; 85027; 85610; 85730; 86850; 86900; 86901; 87077; 87086; 93005; 93010; 93306-TC; 94640; 99285-25; G0378

== ENCOUNTER 2024-04-29 09:53 | Emergency (ER) | payer BC ==
[2024-04-29 10:02] VITALS: RESP 20; TEMP 98.4; BMI 34.9
[2024-04-29 11:37] LABS: VENOUS BASE EXCESS 1.1 mmol/L (-2-2); VENOUS O2 SATURATION 88.3 % (70-80); VENOUS PCO2 42.3 mmHg (38-52); VENOUS PH 7.407 (7.310-7.410)
[2024-04-29] MEDS ORDERED: ALBUTEROL SO4 2.5/IPRATROPIUM 0.5 INH SOL 3 ML VIAL.NEB. NEB ONE ×2 (11:44→12:38)
[2024-04-29] MEDS ORDERED: ACETAMINOPHEN INJECTION 100 ML ONE (11:44)
[2024-04-29] MEDS ORDERED: methylPREDNISolone NA SUCC 125 MG/2 ML VIAL ONE (11:44)
[2024-04-29 11:45] LABS: HEMATOCRIT 37.6 % (32.4-45.2); HEMOGLOBIN 12.1 GM/dL (10.7-15.3); MCH 26.2 pg (25.7-33.7); MCHC 32.1 g/dl (32.0-36.0); MEAN CELL VOLUME 81.6 fl (80-96); MEAN PLT VOLUME 8.8 fl (7.5-11.1); PLATELET COUNT 249 10^3/uL (134-434); RBC 4.61 M/mm3 (3.60-5.2); RDW 15.5 % (11.6-15.6); WHITE BLOOD COUNT 5.1 K/mm3 (4.0-10.0)
[2024-04-29 11:50] LABS: INR 1.08 (0.83-1.09); PROTHROMBIN TIME (PATIENT) 12.2 SEC (9.7-13.0)
[2024-04-29 11:53] LABS: ACTIVATED PTT 29.9 SECONDS (25.2-36.5)
[2024-04-29] MEDS: ACETAMINOPHEN 1000 MG/100 ML BAG IVPB ONE (11:53)
[2024-04-29] MEDS: methylPREDNISolone NA SUCC 125 MG/2 ML VIAL IVPUSH ONE (11:54)
[2024-04-29] MEDS: ALBUTEROL SO4 2.5/IPRATROPIUM 0.5 INH SOL 3 ML VIAL.NEB. NEB SCH (11:54)
[2024-04-29 11:57] LABS: EPI CELLS 19 /uL (0-25.1); HYALINE CASTS 2 /uL (0-3.1); PH,URINE 5.5 (5.0-8.0); URINE APPEARANCE CLEAR; URINE BACTERIA 101 /uL (0-1359); URINE BILIRUBIN NEGATIVE (NEGATIVE); URINE COLOR YELLOW; URINE GLUCOSE (UA) 3+ (NEGATIVE); URINE KETONE TRACE (NEGATIVE); URINE LEUK ESTERASE NEGATIVE (NEGATIVE); URINE NITRITE NEGATIVE (NEGATIVE); URINE PROTEIN 4+ (NEGATIVE); URINE RBC 19 /uL (0-23.9); URINE WBC 15 /uL (0-25.8)
[2024-04-29 12:09] LABS: POTASSIUM 4.2 mmol/L (3.5-5.1)
[2024-04-29 12:09] LABS: HCG,QUALITATIVE URINE Negative
[2024-04-29 12:13] LABS: CALCIUM 8.8 mg/dL (8.5-10.1)
[2024-04-29 12:14] LABS: ALBUMIN 2.9 g/dl (3.4-5.0); BLOOD UREA NITROGEN 12.3 mg/dL (7-18)
[2024-04-29 12:19] LABS: BILIRUBIN,TOTAL 0.4 mg/dL (0.2-1); TOT PROT 6.9 g/dl (6.4-8.2)
[2024-04-29 12:22] LABS: N-TERMINAL BNP 664.7 pg/ml (5-125)
[2024-04-29 13:05] LABS: HIV INTERPRETATION NEGATIVE (NEGATIVE)
[2024-04-29 13:21] LABS: PLATELET ESTIMATE ADEQUATE
[2024-04-29] MEDS ORDERED: LISINOPRIL 20 MG TABLET ONE (13:45)
[2024-04-29] MEDS: LISINOPRIL 20 MG TABLET PO ONE (13:53)
[2024-04-29 17:21] VITALS: BP 170/76; PULSE 89
== END 2024-04-29 18:32 | disposition home or self-care (01) ==
LOC: JER 09:53
PROC: 3E033NZ Introduction of Analgesics, Hypnotics, Sedatives into Peripheral Vein, Percutaneous Approach (ICD-10-PCS; principal; 2024-04-29)
PROC: 3E033GC Introduction of Other Therapeutic Substance into Peripheral Vein, Percutaneous Approach (ICD-10-PCS; 2024-04-29)
PROC: 3E0F7GC Introduction of Other Therapeutic Substance into Respiratory Tract, Via Natural or Artificial Opening (ICD-10-PCS; 2024-04-29)
DX: R05.9 Cough, unspecified (principal); R06.9 Unspecified abnormalities of breathing; U07.1 COVID-19; I10 Essential (primary) hypertension; R06.2 Wheezing; M79.10 Myalgia, unspecified site; R09.81 Nasal congestion
CPT/HCPCS: 36415; 71046-TC-FY; 80053; 81003; 82803; 82962; 83880; 84484; 84703; 85025; 85610; 85730; 86803; 87086; 87389; 93005; 93010; 99285-25; J0131